=== PATIENT | male | born 1960 ===

== ENCOUNTER 2024-10-27 05:00 | Day surgery (SDC) | payer OTHER ==
[2024-10-17 14:00] VITALS: BP 151/93
[~2024-10-27] VITALS: Ht 175.3 cm; Wt 77.1 kg
[~2024-10-27 05:00] MED LIST: SIMVASTATIN5 MG PO; SYNTHROID75 MCG PO; VASOTEC2.5 MG PO
[2024-10-27] MEDS ORDERED: HEMOSTATIC MATRIX 1 KIT KIT TOP ONE (12:15)
[2024-10-27] MEDS ORDERED: LIDOCAINE HCL 1%/EPINEPHRINE 20ML VIAL IJ ONE (12:15)
[2024-10-27] MEDS ORDERED: CEFTRIAXONE SODIUM 2,000 MG VIAL IV ONE (12:15)
[2024-10-27] MEDS ORDERED: POVIDONE-IODINE 118 ML BOTT TOP ONE (12:15)
[2024-10-27] MEDS ORDERED: DIBUCAINE 15 GM OINT..GM. TUBE RECTAL ONE (12:15)
[2024-10-27] MEDS ORDERED: METRONIDAZOLE/SODIUM CHLORIDE 500 MG/100 ML PIGGYBACK IV ONE (12:15)
[2024-10-27] MEDS ORDERED: BUPIVACAINE HCL 30 ML VIAL IJ ONE (12:15)
[2024-10-27] MEDS ORDERED: COLACE100 MG PO (12:37)
[2024-10-27] MEDS ORDERED: TRAM1TAB98 PO (12:37)
== END 2024-10-27 17:15 | disposition home or self-care (01) ==
LOC: CIR.AMB 05:00
PROVIDERS: ATTEND Surgery
DX: K62.82 Dysplasia of anus (principal); K62.89 Other specified diseases of anus and rectum